=== PATIENT | female | born 1975 | race Two or more races ===

== ENCOUNTER 2024-09-26 19:46 | Emergency (ER) | payer MEDICAID, OTHER ==
[~2024-09-26] VITALS: Ht 154.9 cm; Wt 61.0 kg
[2024-09-26 20:49] LABS: Basophils # (auto) 0.1 10 ^3/uL (0-0.2); Basophils % (auto) 0.8 % (0.0-2.0); Eosinophils # (auto) 0.1 10 ^3/uL (0-0.8); Eosinophils % (auto) 1.4 % (0.0-7.0); Hematocrit 39.8 % (36.0-46.0); Hemoglobin 13.6 g/dL (12.2-16.2); Lymphocytes # (auto) 2.1 10 ^3/uL (0.4-5.4); Lymphocytes % (auto) 21.7 % (10.0-50.0); Mean Corpuscular Hemoglobin 32.8 pg (28.0-32.0); Mean Corpuscular Hgb Conc. 34.1 g/dL (32.0-36.0); Mean Corpuscular Volume 96.1 fL (80.0-100.0); Monocytes # (auto) 0.5 10 ^3/uL (0-1.3); Monocytes % (auto) 5.5 % (0.0-12.0); Neutrophils # (auto) 6.7 10 ^3/uL (1.6-8.6); Neutrophils % (auto) 70.6 % (37.0-80.0); Nucleated Red Blood Cells % 0.1 %; Platelet Count (auto) 219 10^3/uL (140-450); Red Blood Cells 4.14 10^6/uL (4.0-5.20); Red Cell Distribution Width 13.6 % (11.8-14.3); White Blood Cell 9.5 10^3/uL (4.4-10.8)
[2024-09-26 20:59] LABS: Chloride 101 mmol/L (98-107); Sodium 136 mmol/L (136-145)
[2024-09-26 21:00] LABS: Anion Gap 12 (5-15); Calcium 10.3 mg/dL (8.7-10.4); Carbon Dioxide 23 mmol/L (20-31)
[2024-09-26 21:05] LABS: BUN/Creatinine Ratio 15.1 (10.0-20.0); Blood Urea Nitrogen 11 mg/dL (9-23)
[2024-09-26 21:06] LABS: Glucose 107 mg/dL (74-106); Potassium 3.3 mmol/L (3.5-5.1)
--- NOTE | 2024-09-26 21:19 | DVH ---
EXAM: CT HEAD WITHOUT CONTRAST INDICATION: Left-sided head pain TECHNIQUE: CT of the head without intravenous contrast. Radiation Dose : 1. Head: CT Dose: CTDI volume is 57 mGy. Dose-length product is 1008 mGy*cm The dose indicators for CT are the volume Computed Tomography (CT) Dose Index (CTDIvol) and the Dose Length Product (DLP), and are measured in units of mGy and mGy-cm, respectively. These indicators are not patient dose, but values generated from the CT scanner acquisition factors. The report includes radiation exposure data for exposures received during this examination. COMPARISON: None FINDINGS: There is no evidence of acute intracranial hemorrhage, extra-axial collection, mass effect, midline s hift, herniation or hydrocephalus. The ventricles, sulci and cisterns are age appropriate. Small posterior fossa arachnoid cyst measurin g up to 3.3 cm The garces-white differentiation is intact. Patchy periventricular and subcortical white matter hypoattenuation is nonspecific but may be related to small vessel ischemic disease. The visualized paranasal sinuses and mastoid air cells are clear. Paranasal sinus disease. Moderate opacification of the left mastoid air cells. IMPRESSION: Moderate diffuse paranasal sinus disease and moderate left-sided mastoid effusion. Correlate for pos sible otomastoiditis.
[2024-09-26 21:31] LABS: Urine Bacteria None Seen /hpf (None Seen)
[2024-09-26 21:40] LABS: Urine Blood Negative /uL (Negative); Urine Clarity Turbid (Clear); Urine Color Orange (Yellow); Urine Mucus FEW (None Seen); Urine Protein, UAD 2+ (Negative); Urine Specific Gravity 1.031 (1.001-1.035); Urine Squamous Epithelial Cell MANY /hpf (<5); Urine Urobilinogen 4 mg/dL (Negative); Urine WBC 17 /hpf (0 - 5)
[2024-09-26] MEDS: KETOROLAC TROMETH 60MG/2ML VIAL IM ONE (21:48)
[2024-09-26 21:50] VITALS: BP 152/97; PULSE 114; RESP 20; TEMP 98.4; O2SAT 98
[2024-09-26] MEDS ORDERED: NITR-87 PO (21:59)
[2024-09-26] MEDS ORDERED: ACET500T58 PO (21:59)
--- NOTE | 2024-09-26 22:00 | ED.PDOC ---
History of Present Illness HPI Comments This patient is a 48-year-old French-speaking only female who arrives the ED today for evaluation of left-sided head pain with left-sided facial numbness and general left-sided discomfort for several days. Patient states the symptoms have abdomen flowed for the past week. Patient states she has got significant anxiety due to family and financial concerns. Patient denies any fever nausea or vomiting. Patient was mildly hypertensive and tachypneic at arrival. Chief Complaint: Anxiety Time Seen by MD: 20:03 Reviewed Notes: Nurses Notes Allergies: Coded Allergies: NO KNOWN ALLERGIES (Unverified , 09/26/24) Information Source: Patient Mode of Arrival: Ambulatory Severity: Moderate Timing: Days Duration: Since onset Prehospital treatment: None Past Medical History PAST MEDICAL HISTORY: Anxiety, Depression Surgical History: Denies all surgeries INFRASTRUCTURE DEVELOPER History: No Pertinent INFRASTRUCTURE DEVELOPER History Family History Family History: Reviewed,noncontributory to illness, No family hx of Cancer, No family hx of DM, No family hx of Heart zohreh, No family hx of HTN, No family hx ofKidney zohreh, No family hx of Liver zohreh, No family hx of Lung zohreh, No family hx of Stroke Social History Smoker: Non-Smoker Alcohol: Denies ETOH Use Drugs: Denies Drug Use Lives In: Home Constitutional: reports: fatigue, weakness; denies: chills, diaphoresis, fever, malaise, sweats, others EENTM: reports: others (Left-sided facial tingling and numbness); denies: blurred vision, double vision, ear bleeding, ear discharge, ear drainage, ear pain, ear ringing, eye pain, eye redness, hearing loss, mouth pain, mouth swelling, nasal discharge, nose bleeding, nose congestion, nose pain, photophobia, tearing, throat pain, throat swelling, voice changes Respiratory: denies: cough, hemoptysis, orthopnea, SOB at rest, shortness of breath, SOB with excertion, stridor, wheezing, others Cardiovascular: denies: chest pain, dizzy spells, diaphoresis, Dyspnea on exertion, edema, irregular heart beat, left arm pain, lightheadedness, palpitations, PND, syncope, others Gastrointestinal: denies: abdomen distended, abdominal pain, blood streaked bowels, constipated, diarrhea, dysphagia, difficulty swallowing, hematemesis, melena, nausea, poor appetite, poor fluid intake, rectal bleeding, rectal pain, vomiting, others Genitourinary: denies: abnormal vagina bleeding, burning, dyspareunia, dysuria, flank pain, frequency, hematuria, incontinence, pain, , vagina discharge, urgency, others Neurological: reports: numbness, tingling, tremors; denies: dizziness, fainti ng, headache, left sided numbness, left sided weakness, paresthesia, pre- existing deficit, right sided numbness, right sided weakness, seizure, speech problems, weakness, others Musculoskeletal: denies: back pain, gout, joint pain, joint swelling, muscle pain, muscle stiffness, neck pain, others Integumetry: denies: bruises, change in color, change in hair/nails, dryness, laceration, lesions, lumps, rash, wounds, others Allergic/Immunocompromised: denies: Difficulty Healing, Frequent Infections, Hives, Itching, others Hematologic/Lymphatic: reports: anemia; denies: blood clots, easy bleeding, easy bruising, swollen glands, others Endocrine: denies: excessive hunger, excessive sweating, excessive thirst, excessive urination, flushing, intolerance to cold, intolerance to heat, unexplained weight gain, unexplained weight loss, others Psychiatric: denies: anxiety, bipolar disorder, depression, hopeless, panic disorder, schizophrenia, sleepless, suicidal, others Physical Exam General Appearance: Moderate Distress (Patient was in moderate distress due mostly to anxiety. Patient was tremulous throughout exam.), Normal HEENT: Head (Unremarkable cranial evaluation. No signs of trauma. No skull depressions or deformities. No signs of trigeminal neuralgia.), Normal ENT Inspection, Pharynx Normal, TMs Normal Neck: Full Range of Motion, Non-Tender, Normal, Normal Inspection Respiratory: Chest Non-Tender, Lungs Clear, No Accessory Muscle Use, No Respiratory Distress, Normal Breath Sounds Cardiovascular: No Edema, No JVD, No Murmur, No Gallop, Normal Peripheral Pulses, Regular Rate/Rhythm Breast Exam: Deferred Gastrointestinal: No Organomegaly, Non Tender, No Pulsatile Mass, Normal Bowel Sounds, Soft Genitalia: Deferred Pelvic: Deferred Rectal: Deferred Extremities: No calf tenderness, Normal capillary refill, Normal inspection, Normal range of motion, Non-tender, No pedal edema Neurologic: Alert, No Motor Deficits, Normal Affect, Normal Mood, No Sensory Deficits Cerebellar Function: Normal Reflexes: Normal Skin: Dry, Normal Color, Warm Lymphatic: No Adenopathy Was a procedure done? Was a procedure done?: No Differential Dx Considerations may include: Subarachnoid hemorrhage, subdural hematoma, intracranial mass, sepsis, electrolyte abnormality, UTI X-Ray, Labs, Meds, VS Vital Signs Date Time Temp Pulse Resp B/P (MAP) Pulse Ox O2 Delivery O2 Flow Rate FiO2 09/26/24 20:01 24 99 Room Air* 0 21 09/26/24 20:01 97.9 97 24 147/91 (109) 99 Lab Test 09/26/24 21:03 09/26/24 20:33 Range/Units Urine Color Williams H Yellow Urine Clarity Turbid H Clear Urine pH 8.0 5.0-9.0 Urine Specific [place] 1.031 1.001-1.035 Urine Protein 2+ H Negative Urine Ketones 4+ H Negative Urine Blood Negative Negative /uL Urine Nitrite Negative Negative Urine Bilirubin 1+ H Negative Urine Urobilinogen 4 H Negative mg/dL Urine Leukocyte Esterase 2+ Negative /uL Urine RBC 6 0 - 4 /hpf Urine WBC 17 0 - 5 /hpf Urine Squamous Epithelial Cells Many <5 /hpf Urine Bacteria None seen None Seen /hpf Urine Mucus Few None Seen Urine Glucose Trace Normal mg/dL Urine Test Negative Negative White Blood Count 9.5 4.4-10.8 10^3/uL Red Blood Count 4.14 4.0-5.20 10^6/uL Hemoglobin 13.6 12.2-16.2 g/dL Hematocrit 39.8 36.0-46.0 % Mean Corpuscular Volume 96.1 80.0-100.0 fL Mean Corpuscular Hemoglobin 32.8 H 28.0-32.0 pg Mean Corpuscular Hemoglobin Concent 34.1 32.0-36.0 g/dL Red Cell Distribution Width 13.6 11.8-14.3 % Platelet Count 219 140-450 10^3/uL Mean Platelet Volume 9.7 6.9-10.8 fL Neutrophils (%) (Auto) 70.6 37.0-80.0 % Lymphocytes (%) (Auto) 21.7 10.0-50.0 % Monocytes (%) (Auto) 5.5 0.0-12.0 % Eosinophils (%) (Auto) 1.4 0.0-7.0 % Basophils (%) (Auto) 0.8 0.0-2.0 % Neutrophils # (Auto) 6.7 1.6-8.6 10 ^3/uL Lymphocytes # (Auto) 2.1 0.4-5.4 10 ^3/uL Monocytes # (Auto) 0.5 0-1.3 10 ^3/uL Eosinophils # (Auto) 0.1 0-0.8 10 ^3/uL Basophils # (Auto) 0.1 0-0.2 10 ^3/uL Nucleated Red Blood Cells 0.1 % Sodium Level 136 136-145 mmol/L Potassium Level 3.3 L 3.5-5.1 mmol/L Chloride Level 101 98-107 mmol/L Carbon Dioxide Level 23 20-31 mmol/L Anion Gap 12 5-15 Blood Urea Nitrogen 11 9-23 mg/dL Creatinine 0.73 0.550-1.02 mg/dL Glomerular Filtration Rate Calc 103 >90 mL/min BUN/Creatinine Ratio 15.1 10.0-20.0 Serum Glucose 107 H 74-106 mg/dL Calcium Level 10.3 8.7-10.4 mg/dL Current Medications Medications (Trade) Dose Ordered Sig/Margaret Route Start Time Stop Time Status Last Admin Ketorolac Tromethamine (Toradol Injection) 30 mg ONCE ONCE IM 09/26/24 20:30 09/26/24 20:31 DC 09/26/24 21:48 X-Ray, Labs, Meds, VS Comment All studies performed the ED were evaluated by me personally. Imaging studies were unremarkable for any acute intracranial process. No neoplasms or masses noted. Serum laboratories were unremarkable but urinalysis confirmed a UTI. Patient was given her 1st dose of antibiotics prior to discharge. Advised patient that she continues to have numbness concerns she may need to follow up with her primary care provider. Time of 1ST Reevaluation: 21:58 Reevaluation 1ST: Improved Consultation: PCP Patient Education/Counseling: Diagnosis, Treatment Family Education/Counseling: Diagnosis, Treatment Departure 1 Departure Time of Disposition: 21:58 Impression: Primary Impression: UTI (urinary tract infection) Disposition: HOME / SELF CARE / HOMELESS Condition: Stable Additional Instructions: Advised patient utilize antibiotics as directed until completion. Patient continues to have numbness concerns, she will need to follow up with the primary care provider for neurologic referral and evaluation. e-Prescriptions Acetaminophen (Acetaminophen) 500 Mg Tab 500 MG PO Q4HP PRN, #30 TAB Prov: ANNIE EDMONDSON PAC 09/26/24 Nitrofurantoin Monohydrate Mac (Macrobid) 100 Mg Cap 100 MG PO BID for 7 Days, #14 CAP Prov: ANNIE EDMONDSON PAC 09/26/24 Discharged With: Self, Friend Critical Care Note Critical Care Time?: No Stability Stability form required: No Heart Score Heart Score: Heart Score Response (Comments) Value History N/A 0 EKG N/A 0 Age N/A 0 Risk Factors N/A 0 Troponin N/A 0 Total 0 ANNIE EDMONDSON PAC Sep 26, 2024 22:00
[2024-09-26] MEDS: NITROFURANTOIN 100 mg CAP PO ONE (22:30)
== END 2024-09-26 22:37 | disposition home or self-care (01) ==
LOC: ER 19:46
DX: N39.0 Urinary tract infection, site not specified (principal); F41.9 Anxiety disorder, unspecified; F32.A Depression, unspecified
CPT/HCPCS: 36415; 70450; 80048; 81001; 81025; 85025; 96372; 99285; J1885

== ENCOUNTER 2024-10-16 08:12 | Inpatient (IN) | payer MEDICAID ==
[~2024-10-16] VITALS: Ht 154.9 cm; Wt 65.1 kg
[~2024-10-16 08:12] MED LIST: ACET500T58 PO; NITR-87 PO
--- NOTE | 2024-10-16 08:27 | ECG ---
[facility] Test Date: 2024-10-16 Test Time: 08:22:06 Pat Name: CRISTOPHER BECERRA Department: er Room: [facility] Gender: F Integration Consultant: amandeep : 1975 Requested By: ARMANI ZAMUDIO Order Number: [id number] Reading MD: Burt Zuniga Measurements Intervals [place] Rate: 102 P: 54 NM: 119 QRS: 3 QRSD: 85 T: 27 QT: 354 QTc: 462 Interpretive Statements Sinus tachycardia Low voltage, precordial leads Electronically Signed On 10-17-2024 17:16:16 PST by Burt Zuniga Please click the below link to view image of tracing.
[2024-10-16] MEDS: ASPirin 325 MG TAB PO ONE (08:30)
--- NOTE | 2024-10-16 08:30 | ED.PDOC ---
HPI Comments 48 year old female presents to the ED with chief complaint of chest pain. Patient reports that she has been experiencing stabbing, 9/10 left sided chest pain with associated dizziness, headache, and radiation to the left shoulder/arm for the past 3 days. Patient relays that she had a similar episode 1 month ago that resolved on its own. Patient states she took Tylenol for pain medication with no relief. Patient notes her pain is worse on exertion. Patient denies any SOB, cough, fever, chills, numbness, weakness, or syncope. Chief Complaint: Chest Pain Time Seen by MD: 08:27 Reviewed Notes: Nurses Notes, Medications, Allergies Allergies: Coded Allergies: NO KNOWN ALLERGIES (Unverified , 09/26/24) Home Meds Active Scripts Acetaminophen (Acetaminophen) 500 Mg Tab, 500 MG PO Q4HP PRN, #30 TAB Prov:ANNIE EDMONDSON PAC 09/26/24 Nitrofurantoin Monohydrate Mac (Macrobid) 100 Mg Cap, 100 MG PO BID for 7 Days, #14 CAP Prov:ANNIE EDMONDSON PAC 09/26/24 Information Source: Patient Mode of Arrival: Ambulatory Severity: Moderate Timing: Days Duration: Since onset Prehospital treatment: None Location: Chest (L) Radiation: Shoulder (L), Arm (L) Quality: Sharp Onset: At Rest, With Light Exertion Cardiac Risk Factors: None PE Risk Factors: None History of: Similar pain in past Past Medical History PAST MEDICAL HISTORY: Anxiety, Depression Surgical History: Denies all surgeries STRING LASTER History: No Pertinent STRING LASTER History Family History Family History: Reviewed,noncontributory to illness, No family hx of Cancer, No family hx of DM, No family hx of Heart zohreh, No family hx of HTN, No family hx ofKidney zohreh, No family hx of Liver zohreh, No family hx of Lung zohreh, No family hx of Stroke Social History Smoker: Non-Smoker Alcohol: Denies ETOH Use Drugs: Denies Drug Use Lives In: Home Constitutional: denies: chills, diaphoresis, fatigue, fever, malaise, sweats, weakness, others EENTM: denies: blurred vision, double vision, ear bleeding, ear discharge, ear drainage, ear pain, ear ringing, eye pain, eye redness, hearing loss, mouth pain, mouth swelling, nasal discharge, nose bleeding, nose congestion, nose pain, photophobia, tearing, throat pain, throat swelling, voice changes, others Respiratory: denies: cough, hemoptysis, orthopnea, SOB at rest, shortness of breath, SOB with excertion, stridor, wheezing, others Cardiovascular: reports: chest pain, left arm pain; denies: dizzy spells, diaphoresis, Dyspnea on exertion, edema, irregular heart beat, lightheadedness, palpitations, PND, syncope, others Gastrointestinal: denies: abdomen distended, abdominal pain, blood streaked bowels, constipated, diarrhea, dysphagia, difficulty swallowing, hematemesis, melena, nausea, poor appetite, poor fluid intake, rectal bleeding, rectal pain, vomiting, others Genitourinary: denies: abnormal vagina bleeding, burning, dyspareunia, dysuria, flank pain, frequency, hematuria, incontinence, pain, , vagina discharge, urgency, others Neurological: reports: dizziness, headache; denies: fainting, left sided numbness, left sided weakness, numbness, paresthesia, pre-existing deficit, right sided numbness, right sided weakness, seizure, speech problems, tingling, tremors, weakness, others Musculoskeletal: denies: back pain, gout, joint pain, joint swelling, muscle pain, muscle stiffness, neck pain, others Integumetry: denies: bruises, change in color, change in hair/nails, dryness, laceration, lesions, lumps, rash, wounds, others Allergic/Immunocompromised: denies: Difficulty Healing, Frequent Infections, Hives, Itching, others Hematologic/Lymphatic: denies: anemia, blood clots, easy bleeding, easy bruisin g, swollen glands, others Endocrine: denies: excessive hunger, excessive sweating, excessive thirst, excessive urination, flushing, intolerance to cold, intolerance to heat, unexplained weight gain, unexplained weight loss, others Psychiatric: denies: anxiety, bipolar disorder, depression, hopeless, panic disorder, schizophrenia, sleepless, suicidal, others All Other Systems: Reviewed and Negative Physical Exam General Appearance: Moderate Distress, Normal HEENT: Normal ENT Inspection, PERRL/EOMI Neck: Full Range of Motion, Non-Tender, Normal, Normal Inspection Respiratory: Chest Non-Tender, Lungs Clear, No Accessory Muscle Use, No Respiratory Distress, Normal Breath Sounds Cardiovascular: No Edema, No JVD, No Murmur, No Gallop, Normal Peripheral Pulses, Regular Rate/Rhythm Breast Exam: Deferred Gastrointestinal: No Organomegaly, Non Tender, No Pulsatile Mass, Normal Bowel Sounds, Soft Genitalia: Deferred Pelvic: Deferred Rectal: Deferred Extremities: No calf tenderness, Normal capillary refill, Normal inspection, Normal range of motion, Non-tender, No pedal edema Musculoskeletal : Apperance: Normal Neurologic: Alert, yield analyst II-XII nml as Tested, No Motor Deficits, Normal Affect, Normal Mood, No Sensory Deficits Cerebellar Function: Normal Reflexes: Normal Skin: Dry, Normal Color, Warm Peripheral Pulses: 3+ Radial (R), 3+ Radial (L) Lymphatic: No Adenopathy Was a procedure done? Was a procedure done?: No CP Differential Dx Differential Diagnosis: A-fib, A-Flutter, Angina, Anxiety / Panic Attack, Atrial Dysrhythmia, Electrolyte Disorder X-Ray, Labs, Meds, VS Vital Signs Date Time Temp Pulse Resp B/P (MAP) Pulse Ox O2 Delivery O2 Flow Rate FiO2 10/16/24 09:42 105 18 97 Room Air 10/16/24 09:42 99.0 105 18 139/96 (110) 97 99.0 10/16/24 09:13 102 10/16/24 08:22 102 10/16/24 08:21 98.0 99 18 135/88 (104) 97 Lab Test 10/16/24 09:47 10/16/24 08:24 10/16/24 08:19 Range/Units Troponin I High Sensitivity < 3 L < 3 L </=34 ng/L White Blood Count 6.8 4.4-10.8 10^3/uL Red Blood Count 4.11 4.0-5.20 10^6/uL Hemoglobin 13.5 12.2-16.2 g/dL Hematocrit 40.1 36.0-46.0 % Mean Corpuscular Volume 97.6 80.0-100.0 fL Mean Corpuscular Hemoglobin 32.7 H 28.0-32.0 pg Mean Corpuscular Hemoglobin Concent 33.5 32.0-36.0 g/dL Red Cell Distribution Width 14.8 H 11.8-14.3 % Platelet Count 317 140-450 10^3/uL Mean Platelet Volume 9.2 6.9-10.8 fL Neutrophils (%) (Auto) 68.4 37.0-80.0 % Lymphocytes (%) (Auto) 25.0 10.0-50.0 % Monocytes (%) (Auto) 5.3 0.0-12.0 % Eosinophils (%) (Auto) 0.5 0.0-7.0 % Basophils (%) (Auto) 0.8 0.0-2.0 % Neutrophils # (Auto) 4.7 1.6-8.6 10 ^3/uL Lymphocytes # (Auto) 1.7 0.4-5.4 10 ^3/uL Monocytes # (Auto) 0.4 0-1.3 10 ^3/uL Eosinophils # (Auto) 0 0-0.8 10 ^3/uL Basophils # (Auto) 0.1 0-0.2 10 ^3/uL Nucleated Red Blood Cells 0.1 % Sodium Level 136 136-145 mmol/L Potassium Level 3.8 3.5-5.1 mmol/L Chloride Level 103 98-107 mmol/L Carbon Dioxide Level 23 20-31 mmol/L Anion Gap 10 5-15 Blood Urea Nitrogen 10 9-23 mg/dL Creatinine 0.67 0.550-1.02 mg/dL Glomerular Filtration Rate Calc 109 >90 mL/min BUN/Creatinine Ratio 14.9 10.0-20.0 Serum Glucose 149 H 74-106 mg/dL Calcium Level 9.9 8.7-10.4 mg/dL Urine Color Brown H Yellow Urine Clarity Ex.turbid Clear Urine pH 6.0 5.0-9.0 Urine Specific [place] 1.028 1.001-1.035 Urine Protein 2+ H Negative Urine Ketones 1+ H Negative Urine Blood 3+ H Negative /uL Urine Nitrite Negative Negative Urine Bilirubin Negative Negative Urine Urobilinogen Normal Negative mg/dL Urine Leukocyte Esterase 1+ Negative /uL Urine RBC 6138 0 - 4 /hpf Urine Microscopic WBC 122 H 0-5 /HPF Urine Squamous Epithelial Cells Few <5 /hpf Urine Bacteria None seen None Seen /hpf Urine Mucus Few None Seen Urine Glucose Normal Normal mg/dL Current Medications Medications (Trade) Dose Ordered Sig/Margaret Route Start Time Stop Time Status Last Admin Aspirin 325 mg ONCE ONCE PO 10/16/24 08:30 10/16/24 08:31 DC 10/16/24 08:30 Patient alert. Complaining of chest pain. Was given aspirin. Cardiac marker within normal limits. UA shows blood. Blood sugar elevated. Continues to have chest discomfort. Possible sepsis from urine. Was given Bactrim. EKG reviewed does not show any acute changes. Explained to the patient. Continue cardiac monitoring. Time of 1ST Reevaluation: 09:27 Reevaluation 1ST: Improved Patient Education/Counseling: Diagnosis, Treatment Family Education/Counseling: No Family Present Departure 1 Departure Time of Disposition: 11:31 Impression: Primary Impression: Chest pain of unknown etiology Additional Impression: Sepsis due to urinary tract infection Disposition: ADMITTED INPATIENT Admit to: Med Surg Condition: Guarded Critical Care Note Critical Care Time?: Yes (45 min-critical care time only) Stability Stability form required: No Heart Score Heart Score: Heart Score Response (Comments) Value History Moderate Suspicious 1 EKG Normal 0 Age 45-64 1 Risk Factors 1 or 2 risk factors 1 Troponin Normal limit 0 Total 3 I personally scribed for ARMANI ZAMUDIO MD ([email or web address]) on 10/16/24 at 08:30. Electronically submitted by Fran Espinal ([email or web address]). ARMANI ZAMUDIO MD Oct 16, 2024 08:30
[2024-10-16 08:35] LABS: Basophils # (auto) 0.1 10 ^3/uL (0-0.2); Basophils % (auto) 0.8 % (0.0-2.0); Eosinophils # (auto) 0 10 ^3/uL (0-0.8); Eosinophils % (auto) 0.5 % (0.0-7.0); Hematocrit 40.1 % (36.0-46.0); Hemoglobin 13.5 g/dL (12.2-16.2); Lymphocytes # (auto) 1.7 10 ^3/uL (0.4-5.4); Mean Corpuscular Hemoglobin 32.7 pg (28.0-32.0); Mean Corpuscular Hgb Conc. 33.5 g/dL (32.0-36.0); Mean Corpuscular Volume 97.6 fL (80.0-100.0); Monocytes # (auto) 0.4 10 ^3/uL (0-1.3); Monocytes % (auto) 5.3 % (0.0-12.0); Neutrophils # (auto) 4.7 10 ^3/uL (1.6-8.6); Neutrophils % (auto) 68.4 % (37.0-80.0); Nucleated Red Blood Cells % 0.1 %; Platelet Count (auto) 317 10^3/uL (140-450); Red Blood Cells 4.11 10^6/uL (4.0-5.20); Red Cell Distribution Width 14.8 % (11.8-14.3); White Blood Cell 6.8 10^3/uL (4.4-10.8)
[2024-10-16 08:45] LABS: Chloride 103 mmol/L (98-107); Potassium 3.8 mmol/L (3.5-5.1)
[2024-10-16 08:46] LABS: Anion Gap 10 (5-15); Carbon Dioxide 23 mmol/L (20-31); Sodium 136 mmol/L (136-145)
[2024-10-16 08:46] LABS: Urine Bacteria None Seen /hpf (None Seen)
[2024-10-16 08:47] LABS: Calcium 9.9 mg/dL (8.7-10.4)
[2024-10-16 08:52] LABS: BUN/Creatinine Ratio 14.9 (10.0-20.0); Blood Urea Nitrogen 10 mg/dL (9-23)
[2024-10-16 09:01] LABS: Urine Blood 3+ /uL (Negative); Urine Clarity Ex.Turbid (Clear); Urine Color Brown (Yellow); Urine Mucus FEW (None Seen); Urine Protein, UAD 2+ (Negative); Urine Specific Gravity 1.028 (1.001-1.035); Urine Squamous Epithelial Cell FEW /hpf (<5); Urine Urobilinogen Normal (Negative); Urine WBC 122 /HPF (0-5)
[2024-10-16 09:33] LABS: Glucose 149 mg/dL (74-106)
[2024-10-16] MEDS: SULFAMETH-TRIMETH 80/16MG-ML 10 ML in D5W 5% 250 ML IV ONE (11:45)
[2024-10-16] MEDS ORDERED: NITROGLYCERIN 0.4 MG SL TAB SL PRN (13:45)
[2024-10-16] MEDS ORDERED: DOCUSATE SOD 100 MG CAP PO PRN (13:45)
--- NOTE | 2024-10-16 13:46 | DVHHP2 ---
History of Present Illness Reason for Visit: CHEST PAIN History of Present Illness 48-year-old female past medical history anxiety depression in Nauruan speaking surgical history denies chief complaint patient comes in with left-sided chest pain that radiates down her left arm in his of dizziness and headache has been going on for three days. Patient denies any shortness with the breath with the pain no cough no fever. Nothing makes it worse nothing makes it better. Patient denies any history of cardiac disease. Patient denies any abdominal pain no flank pain. No blood in her urine no difficulty urination. When evaluating patient's labs and imaging Bactrim was given aspirin CBC was unre markable CMP unremarkable troponin was negative x2 urine showed ketones and little bit of blood and bacteria. With these findings we will admit patient do further workup for chest pain and provide IV antibiotics for UTI Past Medical History Anxiety depression Past Surgical History Denies surgical history Family History Reviewed, non-contributory to the management of this case. Past Social History The patient lives at home, denies smoking, alcohol or illicit drugs abuse. Review of Systems Constitutional: No: Fever, Chills, Sweats, Weakness, Malaise, Other Eyes: No: Pain, Vision change, Conjunctivae inflammation, Eyelid inflammation, Other, Redness ENT: No: Ear pain, Ear discharge, Nose pain, Nose discharge, Nose congestion, Mouth pain, Mouth swelling, Throat pain, Throat swelling, Other Respiratory: No: Cough, Dry, Shortness of breath, SOB with excertion, Wheezing, Hemoptysis, Pleuritic Pain, Sputum, Wheezing, Other Cardiovascular: Chest Pain; No: Palpitations, Orthopnea, Paroxysmal Noc. Dyspnea, Edema, Lt Headedness, Other Gastrointestinal: No: Nausea, Vomiting, Abdominal Pain, Diarrhea, Constipation, Melena, Hematochezia, Other Genitourinary: No Dysuria, No Frequency, No Incontinence, No Hematuria, No Retention, No Other Musculoskeletal: No: other, neck pain, shoulder pain, arm pain, back pain, hand pain, leg pain, foot pain Skin: No: Rash, Lesions, Jaundice, Bruising, Other Neurological: No: Weakness, Numbness, Incoordination, Change in speech, Con fusion, Seizures, Other Allergies: Coded Allergies: NO KNOWN ALLERGIES (Unverified , 09/26/24) Exam Vital Signs Vital Signs Date Time Temp Pulse Resp B/P (MAP) Pulse Ox O2 Delivery O2 Flow Rate FiO2 10/16/24 09:42 105 18 97 Room Air 10/16/24 09:42 99.0 139/96 (110) 99.0 General Appearance: Alert, Oriented X3, Cooperative, No acute distress HEENT: Atraumatic, PERRLA, EOMI, Mucous membr. moist/pink Respiratory: Clear to auscultation, Normal air movement Cardiovascular: Regular rate, Normal S1, Normal S2, No murmurs Abdominal: Normal bowel sounds, Soft, No tenderness, No hepatospenomegaly, No masses Extremities: No clubbing, No cyanosis, No edema, Normal pulses, No tenderness/swelling Skin: No rashes, No breakdown, No significant lesion Neuro: Normal gait, Normal speech, Strength at 5/5 X4 ext, Normal tone, Sensation intact, Cranial nerves 3-12 NL Psych/Mental Status: Mental status NL, Mood NL Labs/Xrays I REVIEWED LABS, IMAGING CT SCAN ABDOMEN PELVIS, EKG AND ALL DIAGNOSTIC STUDIES ON THIS PATIENT FROM ED RECORDS AND THE MEDICAL CHART Labs Test 10/16/24 09:47 10/16/24 08:24 10/16/24 08:19 Range/Units Troponin I High Sensitivity < 3 L </=34 ng/L White Blood Count 6.8 4.4-10.8 10^3/uL Red Blood Count 4.11 4.0-5.20 10^6/uL Hemoglobin 13.5 12.2-16.2 g/dL Hematocrit 40.1 36.0-46.0 % Mean Corpuscular Volume 97.6 80.0-100.0 fL Mean Corpuscular Hemoglobin 32.7 H 28.0-32.0 pg Mean Corpuscular Hemoglobin Concent 33.5 32.0-36.0 g/dL Red Cell Distribution Width 14.8 H 11.8-14.3 % Platelet Count 317 140-450 10^3/uL Mean Platelet Volume 9.2 6.9-10.8 fL Neutrophils (%) (Auto) 68.4 37.0-80.0 % Lymphocytes (%) (Auto) 25.0 10.0-50.0 % Monocytes (%) (Auto) 5.3 0.0-12.0 % Eosinophils (%) (Auto) 0.5 0.0-7.0 % Basophils (%) (Auto) 0.8 0.0-2.0 % Neutrophils # (Auto) 4.7 1.6-8.6 10 ^3/uL Lymphocytes # (Auto) 1.7 0.4-5.4 10 ^3/uL Monocytes # (Auto) 0.4 0-1.3 10 ^3/uL Eosinophils # (Auto) 0 0-0.8 10 ^3/uL Basophils # (Auto) 0.1 0-0.2 10 ^3/uL Nucleated Red Blood Cells 0.1 % Sodium Level 136 136-145 mmol/L Potassium Level 3.8 3.5-5.1 mmol/L Chloride Level 103 98-107 mmol/L Carbon Dioxide Level 23 20-31 mmol/L Anion Gap 10 5-15 Blood Urea Nitrogen 10 9-23 mg/dL Creatinine 0.67 0.550-1.02 mg/dL Glomerular Filtration Rate Calc 109 >90 mL/min BUN/Creatinine Ratio 14.9 10.0-20.0 Serum Glucose 149 H 74-106 mg/dL Calcium Level 9.9 8.7-10.4 mg/dL Urine Color Brown H Yellow Urine Clarity Ex.turbid Clear Urine pH 6.0 5.0-9.0 Urine Specific [place] 1.028 1.001-1.035 Urine Protein 2+ H Negative Urine Ketones 1+ H Negative Urine Blood 3+ H Negative /uL Urine Nitrite Negative Negative Urine Bilirubin Negative Negative Urine Urobilinogen Normal Negative mg/dL Urine Leukocyte Esterase 1+ Negative /uL Urine RBC 6138 0 - 4 /hpf Urine Microscopic WBC 122 H 0-5 /HPF Urine Squamous Epithelial Cells Few <5 /hpf Urine Bacteria None seen None Seen /hpf Urine Mucus Few None Seen Urine Glucose Normal Normal mg/dL Assessment/Plan Assessment/Plan acute chest pain eval for acs ordered cxr ordered ekg no stemi and trop negative consider cards consult if echo is abnormal ordered chung ordered atorvastatin ordered morphine as needed for pain, ordered lipid panel acute cystitis ordered ceftriaxone ordered urine culture chronic problems anxiety depression fen/ppx diet ivf hl no gi ppx since hx of gerds or gi bleed no dvt ppx since pt is ambulatory plan admit to tele for chest pain Plan discussed with: Patient My Orders Orders - ZUHAIR MORTON DNP Procedure Category Date Status Time Admit ADMIT 10/16/24 Verified 13:40 Allergies ROB 10/16/24 Verified 13:40 Code Status CODE 10/16/24 Verified 13:40 Ondansetron Hcl [facility] 10/16/24 Verified (Zofran) 13:45 Docusate Sodium [facility] 10/16/24 Verified Capsule (Colace 13:45 Complete Blood Count LAB 10/17/24 Verified 04:00 Comprehensive LAB 10/17/24 Verified Metabolic Panel 04:00 Cardiac DIET 10/16/24 Verified Diet-2gna,Lofat,Lochol Dinner Condition: Stable [facility] 10/16/24 Verified 13:40 BRP [facility] 10/16/24 Verified 13:40 Morphine Sulfate [facility] 10/16/24 Verified Injection 13:45 Sequential [facility] 10/16/24 Verified Compression Device Nitroglycerin [facility] 10/16/24 Verified Sublingual (Ntrostat 13:45 Stat Ekg For Chest [facility] 10/16/24 Verified Pain 13:40 Notify Md Of Changes [facility] 10/16/24 Verified From Base 13:40 Environmental Science Program Director For [facility] 10/16/24 Verified 24 Hours 13:40 Emergency Dysrhythmia [facility] 10/16/24 Verified Protocol 13:40 Rhythm Strips Once [facility] 10/16/24 Verified Every Shift 13:40 Oxygen By Nasal RT 10/16/24 Verified Cannula 13:40 Aspirin Tablet [facility] 10/17/24 Verified 10:00 Ceftriaxone Ivpb [facility] 10/17/24 Verified Rocephin 09:00 Ceftriaxone Ivpb [facility] 10/16/24 Verified Rocephin 13:45 Date of Service: Oct 16, 2024 Billing Provider: ZUHAIR MORTON DNP Common Visit Codes: [id number] INP/OBS CARE (HIGH) ZUHAIR MORTON [facility] Oct 16, 2024 13:46
--- NOTE | 2024-10-16 14:18 | DVH ---
CHEST RADIOGRAPH Indication: eval for chest pain Technique: Single frontal view of the chest was obtained Comparison: None FINDINGS: Lines and Tubes: None Lungs: No focal consolidation. Pleura: No effusion. No pneumothorax. Cardiomediastinal contours: Unremarkable Bones: No acute osseous abnormality. IMPRESSION: No acute cardiopulmonary disease.
[2024-10-16 15:00] VITALS: PULSE 94; RESP 17; O2SAT 100
[2024-10-16] MEDS: ONDANSETRON HCL 4 MG/2 ML VIAL IV PRN (15:18)
[2024-10-16] MEDS: cefTRIAXone 1GM/50ML D5W 50 ML IV ONE (15:18)
[2024-10-16] MEDS: MORPHINE SULFATE INJ 2 MG/ml SYRG IV PRN (15:19)
[2024-10-16 18:50] VITALS: BP 137/93; PULSE 72; RESP 18; TEMP 98.6; O2SAT 98
[2024-10-16 20:00] VITALS: PULSE 80; PULSE 82; PULSE 98; RESP 18; O2SAT 80
[2024-10-16] MEDS ORDERED: IBUP-1455 PO (20:06)
[2024-10-16 21:00] VITALS: BP 138/95; PULSE 80; RESP 18; TEMP 98.6; O2SAT 98
[2024-10-16] MEDS: ATORVASTATIN 20 MG TAB PO SCH (21:14)
[2024-10-17 01:00] VITALS: BP 137/80; PULSE 73; RESP 18; TEMP 98.1; O2SAT 99
[2024-10-17 05:00] VITALS: BP 136/83; PULSE 68; RESP 18; TEMP 98; O2SAT 98
[2024-10-17 06:14] LABS: Basophils # (auto) 0.1 10 ^3/uL (0-0.2); Basophils % (auto) 0.8 % (0.0-2.0); Eosinophils # (auto) 0.4 10 ^3/uL (0-0.8); Eosinophils % (auto) 6.1 % (0.0-7.0); Hematocrit 36.9 % (36.0-46.0); Hemoglobin 12.3 g/dL (12.2-16.2); Lymphocytes # (auto) 2.5 10 ^3/uL (0.4-5.4); Lymphocytes % (auto) 35.7 % (10.0-50.0); Mean Corpuscular Hemoglobin 32.6 pg (28.0-32.0); Mean Corpuscular Hgb Conc. 33.4 g/dL (32.0-36.0); Mean Corpuscular Volume 97.5 fL (80.0-100.0); Monocytes # (auto) 0.5 10 ^3/uL (0-1.3); Monocytes % (auto) 6.7 % (0.0-12.0); Neutrophils # (auto) 3.5 10 ^3/uL (1.6-8.6); Neutrophils % (auto) 50.7 % (37.0-80.0); Nucleated Red Blood Cells % 0.2 %; Platelet Count (auto) 251 10^3/uL (140-450); Red Blood Cells 3.79 10^6/uL (4.0-5.20); Red Cell Distribution Width 14.4 % (11.8-14.3); White Blood Cell 6.9 10^3/uL (4.4-10.8)
[2024-10-17 06:45] LABS: Anion Gap 9 (5-15); BUN/Creatinine Ratio 15.5 (10.0-20.0); Blood Urea Nitrogen 11 mg/dL (9-23); Calcium 9.7 mg/dL (8.7-10.4); Carbon Dioxide 24 mmol/L (20-31); Chloride 103 mmol/L (98-107); Glucose 90 mg/dL (74-106); Potassium 3.8 mmol/L (3.5-5.1)
[2024-10-17 06:46] LABS: Alanine Aminotransferase 58 U/L (7-40); Alkaline Phosphatase 117 U/L (46-116); Sodium 136 mmol/L (136-145)
[2024-10-17 06:47] LABS: Albumin 3.8 g/dL (3.2-4.8); Total Protein 7.5 g/dL (5.7-8.2)
[2024-10-17 06:51] LABS: Aspartate Aminotransferase 92 U/L (13-40); Bilirubin, Total 2.3 mg/dL (0.2-1.0)
[2024-10-17 08:00] VITALS: PULSE 68; PULSE 72; RESP 18
[2024-10-17 09:00] VITALS: BP 139/88; PULSE 66; RESP 14; TEMP 98.5; O2SAT 94
[2024-10-17] MEDS: ASPirin 81 mg TAB PO SCH (09:36)
[2024-10-17] MEDS: cefTRIAXone 1GM/50ML D5W 50 ML IV SCH (09:36)
[2024-10-17 09:58] LABS: Triglycerides 83 mg/dL (< 150)
[2024-10-17 09:59] LABS: LDL Cholesterol 123 mg/dL (< 100)
[2024-10-17 10:00] LABS: Cholesterol 175 mg/dL (< 200); HDL Cholesterol 50 mg/dL (40-59)
[2024-10-17] MEDS ORDERED: ASPirin 81 mg TAB PO SCH (10:00)
--- NOTE | 2024-10-17 11:24 | DVHSR ---
APPROVED REPORT EXAM: Two-dimensional and M-mode echocardiogram with Doppler and color Doppler. Blood Pressure: 136/83 mmHg INDICATION eval for cardiac function and ef RISK FACTORS Height: 5'1, Weight: 143 DIMENSIONS LVDd4.3 (3.8-5.7cm)LA (2D)3.3 (1.9-4.0cm)Aortic Root3.1 (2.0-3.7cm) LVDs2.9 (2.5-4.0cm)LA (MM) (1.9-4.0cm)Aortic Cusp Exc1.4 (1.5-2.0cm) EF (%) 60.0 (55-70%)Rt. Atrium3.1 (1.9-4.0cm)Asc. Aorta3.6 cm IVSd0.9 (0.7-1.1cm)RV (D)4.0 (1.8-2.4cm) PWd1.0 (0.7-1.1cm) Mitral Valve MitralMitral Stenosis E wave0.87m/sMV Mean GR.mmHg A wave0.71m/sMV Peak GR.mmHg E/A ratio1.22D MVAcm2 DECEL [id number] 1/2 Timems Aortic Valve Aortic ValveAortic Stenosis V11.01m/Dinorah Mean GR.3mmHg V21.19m/Dinorah Peak GR.6mmHg LVOT Diameter1.6 (1.8-2.4cm)Doppler AVA1.71cm2 Pulmonic Valve V20.73m/s Tricuspid Valve TR Velocity1.93m/s [id number] LEFT VENTRICLE The left ventricle is of normal size. Wall thickness is normal. Ejection fraction is normal and is estimated at 60%. There is no regional wall motion abnormalities. Diastolic function is normal. E to E prime ratio is in normal range. RIGHT VENTRICLE The right ventricle is of normal size. Systolic function is normal. There is prominent moderator ba nd visualized. ATRIA Both atria are of normal size. Interatrial septum appears to be normal. MITRAL VALVE Normal structure and function. No significant mitral regurgitation. PULMONIC VALVE Likely normal. TRICUSPID VALVE Normal structure and function. There is trace tricuspid regurgitation. PA systolic pressure is anitra mated at 20-25 mm Hg. AORTIC VALVE Normal structure and function. GREAT VESSELS The aortic root is of normal size. Proximal ascending aorta is of normal size. PERICARDIAL EFFUSION No significant pericardial effusion. IVC is of normal size and collapses normally with inspiration. Conclusion Normal left ventricular size and systolic function. Ejection fraction is estimated at 60%. Normal right ventricular size and systolic function. No hemodynamically significant valvular disease. No evidence of pulmonary hypertension. No significant pericardial effusion.
[2024-10-17 13:00] VITALS: BP 139/90; PULSE 63; RESP 20; TEMP 98; O2SAT 95
--- NOTE | 2024-10-17 13:35 | ECG ---
[facility] Test Date: 2024-10-16 Test Time: 09:13:39 Pat Name: CRISTOPHER BECERRA Department: er Room: [facility]6T A Gender: F Mast Maker: amandeep : [id number] Requested By: ARMANI ZAMUDIO Order Number: [id number] Reading MD: Burt Zuniga Measurements Intervals [place] Rate: 102 P: 56 WI: 129 QRS: -54 QRSD: 83 T: 15 QT: 346 QTc: 451 Interpretive Statements Sinus tachycardia LAD, consider left anterior fascicular block Low voltage, precordial leads Minimal ST elevation, lateral leads Electronically Signed On 10-17-2024 17:16:35 PST by Burt Zuniga Please click the below link to view image of tracing.
[2024-10-17] MEDS: MAGNESIUM SULFATE 1GM/100ML 100 ML IV ONE (13:54)
--- NOTE | 2024-10-17 13:54 | DVH ---
EXAM: CT SINUS WITHOUT CONTRAST HISTORY: Sinusitis COMPARISON: CT HEAD WITHOUT CONTRAST on DOS: 09/26/24 TECHNIQUE: Axial images were obtained and reformatted in coronal and sagittal planes. All CT scans at this medical facility are performed using dose modulation techniques as appropriate t o a performed exam including the following: Automated exposure control was utilized; adjustment of th e MA and/or KV according to patient size; and use of iterative reconstruction technique. CT Dose: CTDI volume is 66.5 mGy. Dose-length product is 838.76 mGy*cm FINDINGS: PARANASAL SINUSES: Trace fluid mixed with air noted in the dependent part of the left sphenoid sinus. Mild left maxillary sinus mucosal thickening OSTIOMEATAL COMPLEXES: Unremarkable. Specifically, the infundibulum are patent. NASAL CAVITY: The osseous nasal septum is midline. The nasal turbinates are unremarkable. MASTOIDS: Moderate mastoid effusion. TEMPOROMANDIBULAR JOINTS: Unremarkable. ORBITS: Unremarkable. ORAL CAVITY: Grossly unremarkable. TONSILS AND ADENOIDS: Unremarkable. BONES/SOFT TISSUES: Unremarkable. OTHER: None. IMPRESSION: 1. Significant interval improvement of paranasal sinus disease minimal disease noted in the left sphe noid and maxillary sinuses. 2. Stable left mastoid effusion.
[2024-10-17] MEDS: PROCHLORPERAZINE EDISYLATE 5 MG/ML 2ML VIAL IV ONE (13:55)
[2024-10-17] MEDS ORDERED: IBUP1TAB5 PO (15:18)
[2024-10-17] MEDS ORDERED: AUG875T PO (15:18)
[2024-10-17] MEDS ORDERED: ACET650T12 PO (15:18)
--- NOTE | 2024-10-17 15:31 | DVHDSRES ---
Discharge Summary Date of Admission Resident Creating Document: SHORTY MARQUEZ RESIDENT Oct 16, 2024 at 13:40 Date of Discharge: Oct 17, 2024 Admitting Diagnosis Acute chest pain and frontal headache Wounds: No wounds present at this time. Labs/Diagnostic Data: Laboratory Results Test 10/17/24 04:48 10/16/24 09:47 10/16/24 08:19 White Blood Count 6.9 10^3/uL (4.4-10.8) Red Blood Count 3.79 10^6/uL (4.0-5.20) Hemoglobin 12.3 g/dL (12.2-16.2) Hematocrit 36.9 % (36.0-46.0) Mean Corpuscular Volume 97.5 fL (80.0-100.0) Mean Corpuscular Hemoglobin 32.6 pg (28.0-32.0) Mean Corpuscular Hemoglobin Concent 33.4 g/dL (32.0-36.0) Red Cell Distribution Width 14.4 % (11.8-14.3) Platelet Count 251 10^3/uL (140-450) Mean Platelet Volume 9.7 fL (6.9-10.8) Neutrophils (%) (Auto) 50.7 % (37.0-80.0) Lymphocytes (%) (Auto) 35.7 % (10.0-50.0) Monocytes (%) (Auto) 6.7 % (0.0-12.0) Eosinophils (%) (Auto) 6.1 % (0.0-7.0) Basophils (%) (Auto) 0.8 % (0.0-2.0) Neutrophils # (Auto) 3.5 10 ^3/uL (1.6-8.6) Lymphocytes # (Auto) 2.5 10 ^3/uL (0.4-5.4) Monocytes # (Auto) 0.5 10 ^3/uL (0-1.3) Eosinophils # (Auto) 0.4 10 ^3/uL (0-0.8) Basophils # (Auto) 0.1 10 ^3/uL (0-0.2) Nucleated Red Blood Cells 0.2 % Sodium Level 136 mmol/L (136-145) Potassium Level 3.8 mmol/L (3.5-5.1) Chloride Level 103 mmol/L (98-107) Carbon Dioxide Level 24 mmol/L (20-31) Anion Gap 9 (5-15) Blood Urea Nitrogen 11 mg/dL (9-23) Creatinine 0.71 mg/dL (0.550-1.02) Glomerular Filtration Rate Calc 106 mL/min (>90) BUN/Creatinine Ratio 15.5 (10.0-20.0) Serum Glucose 90 mg/dL (74-106) Hemoglobin A1c 5.0 % A1C (<5.7) Calcium Level 9.7 mg/dL (8.7-10.4) Total Bilirubin 2.3 mg/dL (0.2-1.0) Aspartate Amino Transferase (AST) 92 U/L (13-40) Alanine Aminotransferase (ALT) 58 U/L (7-40) Alkaline Phosphatase 117 U/L (46-116) B-Type Natriuretic Peptide 60.86 pg/mL (0-100) Total Protein 7.5 g/dL (5.7-8.2) Albumin 3.8 g/dL (3.2-4.8) Triglycerides Level 83 mg/dL (< 150) Cholesterol Level 175 mg/dL (< 200) LDL Cholesterol 123 mg/dL (< 100) HDL Cholesterol 50 mg/dL (40-59) Thyroid Stimulating Hormone (TSH) 2.26 uIU/mL (0.55-4.78) Troponin I High Sensitivity < 3 ng/L (</=34) Urine Color Brown (Yellow) Urine Clarity Ex.turbid (Clear) Urine pH 6.0 (5.0-9.0) Urine Specific [employer] 1.028 (1.001-1.035) Urine Protein 2+ (Negative) Urine Ketones 1+ (Negative) Urine Blood 3+ /uL (Negative) Urine Nitrite Negative (Negative) Urine Bilirubin Negative (Negative) Urine Urobilinogen Normal mg/dL (Negative) Urine Leukocyte Esterase 1+ /uL (Negative) Urine RBC 6138 /hpf (0 - 4) Urine Microscopic WBC 122 /HPF (0-5) Urine Squamous Epithelial Cells Few /hpf (<5) Urine Bacteria None seen /hpf (None Seen) Urine Mucus Few (None Seen) Urine Glucose Normal mg/dL (Normal) Other Laboratory Tests 10/17/24 04:48 Brief Hx & Hospital Course: Hospitalization course: This is a 48-year-old female with past medical history of anxiety disorder, depression with no significant surgical history of relevance who presented to the ED with acute headache associated with left-sided chest pain that radiated to her left arm. The patient also reported associated dizziness that has been going on for the last three days. On admission, the patient denied shortness of breath, fever, chills and stated that the pain was not getting any worse or better with any changing of position or palpation. The patient denied any history of cardiac disease and had no any additional symptoms. Upon my examination the patient was emphasizing headache that was worse compared to the pain that she was feeling of the left-sided of the chest. Initial EKG was showing sinus rhythm with no significant ST segment elevation or depression and no T-wave abnormalities. Troponins came back negative and echocardiogram was unremarkable showing an LVEF of 60%. Acute coronary syndrome was ruled out and we performed a CT scan of the sinuses which showed improvement of paranasal sinusitis compared to previous CT on previous visit. The patient was started on Augmentin 875 mg one tab b.i.d. we will continue this treatment for 10 days upon discharge. We encouraged the patient to complete antibiotic therapy as prescribed, we will send acetaminophen and he will prevent q.8 p.r.n. for headache. We encouraged the patient to follow up with her PCP in one week and get referral for neurology and ENT for migraines and chronic sinusitis. Patient agrees and understands the plan. Admitting diagnosis: Acute chest pain and frontal headache. Discharge plan -Augmentin 875 mg one tab b.i.d. for 10 days -ibuprofen 600 mg q.8 p.r.n. for five days, for headache -acetaminophen 650 mg q.8 p.r.n. for five days, for headache -follow-up with her PCP in one week -follow-up with neurology and ENT for headache and chronic sinusitis as outpatient. Consults/Reason for consult N/A Operations or Procedures CHEST RADIOGRAPH Indication: eval for chest pain Technique: Single frontal view of the chest was obtained Comparison: None FINDINGS: Lines and Tubes: None Lungs: No focal consolidation. Pleura: No effusion. No pneumothorax. Cardiomediastinal contours: Unremarkable Bones: No acute osseous abnormality. IMPRESSION: No acute cardiopulmonary disease. EXAM: CT SINUS WITHOUT CONTRAST HISTORY: Sinusitis COMPARISON: CT HEAD WITHOUT CONTRAST on DOS: 1/3/25 TECHNIQUE: Axial images were obtained and reformatted in coronal and sagittal planes. All CT scans at this medical facility are performed using dose modulation techniques as appropriate to a performed exam including the following: Automated exposure control was utilized; adjustment of the MA and/or KV according to patient size; and use of iterative reconstruction technique. CT Dose: CTDI volume is 66.5 mGy. Dose-length product is 838.76 mGy*cm FINDINGS: PARANASAL SINUSES: Trace fluid mixed with air noted in the dependent part of the left sphenoid sinus. Mild left maxillary sinus mucosal thickening OSTIOMEATAL COMPLEXES: Unremarkable. Specifically, the infundibulum are patent. NASAL CAVITY: The osseous nasal septum is midline. The nasal turbinates are unremarkable. MASTOIDS: Moderate mastoid effusion. TEMPOROMANDIBULAR JOINTS: Unremarkable. ORBITS: Unremarkable. ORAL CAVITY: Grossly unremarkable. TONSILS AND ADENOIDS: Unremarkable. BONES/SOFT TISSUES: Unremarkable. OTHER: None. IMPRESSION: 1. Significant interval improvement of paranasal sinus disease minimal disease noted in the left sphenoid and maxillary sinuses. 2. Stable left mastoid effusion. Condition at Discharge: Good Final Diagnosis/Problems List Acute on chronic sinusitis Acute uncomplicated cystitis/UTI Acute chest pain likely non cardiac, due to anxiety Acute coronary syndrome ruled out Dyslipidemia Anxiety Depression Discharge Disposition: Home Discharge Instruct/Medications Diet: Regular Activity: No Restrictions, As Tolerated Follow Up/Referral: F/U in 1 week with her PCP F/U with neurology as outpatient for migraines Medications: Augmentin 875mg 1tab BID for 10 days Ibuprophen 600mg Q8 PRN for 5 days Acetaminophen 650mg Q8 PRN for 5 days Discharge Statement: "Patient was advised to return to the ER or call 911 if any headaches, dizziness, shortness of breath, chest pain, abdominal pain, bleeding, fevers, or worsening of medical condition. Patient was counseled about treatment plan, medications, possible side effects, patientverbalized understanding. All questions were answered to the best of my ability. This discharge took greater then 30 minutes in planning, reviewing documentation, counseling the patient, and discussing with other team members." ASSESSMENT ASSESSMENT Assessment Acute on chronic sinusitis Acute uncomplicated cystitis/UTI Acute chest pain likely non cardiac, due to anxiety Acute coronary syndrome ruled out Dyslipidemia Anxiety Depression Date of Service: Oct 17, 2024 Billing Provider: KATHERINE HUMPHREYS MD Common Visit Codes: [id number] DISCH DAY >30min SHORTY MARQUEZ RESIDENT Oct 17, 2024 15:31 KATHERINE HUMPHREYS MD Oct 21, 2024 09:46
[2024-10-17 16:43] VITALS: BP 101/68; PULSE 95; RESP 19; TEMP 98.5; O2SAT 95
[2024-10-17] MEDS ORDERED: AMOXICILLIN/CLAVUL 875 MG TAB PO SCH (22:00)
== END 2024-10-17 17:20 | disposition home or self-care (01) | DRG 463 ==
LOC: ER 08:12 → TELE 13:40 → TELE-WESTW 18:52
PROVIDERS: ADMIT Nurse Practitioner Family; ATTEND Nurse Practitioner Family
DX: N30.00 Acute cystitis without hematuria (principal); E78.5 Hyperlipidemia, unspecified; J01.90 Acute sinusitis, unspecified; F41.9 Anxiety disorder, unspecified; F32.A Depression, unspecified
CPT/HCPCS: 36415; 70486; 71045; 80048; 80053; 80061; 81001; 83036; 83880; 84443; 84484; 85025; 87086; 93005; 93306; 99291; G0378; J2405; J3490; J7060

== ENCOUNTER 2024-11-03 16:51 | Emergency (ER) | payer MEDICAID ==
[~2024-11-03] VITALS: Ht 154.9 cm; Wt 81.0 kg
[~2024-11-03 16:51] MED LIST changes: -ACET500T58 PO; +ACET650T12 PO; +AUG875T PO; +IBUP-1455 PO; +IBUP1TAB5 PO; -NITR-87 PO
[2024-11-03 18:28] LABS: Urine Bacteria None Seen /hpf (None Seen)
[2024-11-03 18:45] LABS: Urine Blood Negative /uL (Negative); Urine Budding Yeast MODERATE /hpf (None Seen); Urine Clarity Turbid (Clear); Urine Color Light-Orange (Yellow); Urine Mucus FEW (None Seen); Urine Protein, UAD TRACE (Negative); Urine Squamous Epithelial Cell FEW /hpf (<5); Urine Urobilinogen 2 mg/dL (Negative); Urine WBC < 1 /HPF (0-5)
[2024-11-03] MEDS ORDERED: LEVO500T91 PO (19:02)
--- NOTE | 2024-11-03 19:02 | ED.PDOC ---
History of Present Illness HPI Comments Patient states she has been having headache for the last two weeks. He was recently seen and admitted in the emergency department at this hospital. States she was discharged with migraines and sinus infection. She took her full course of Augmentin states no significant improvement. Patient is still reports pain in her sinuses. Leaning forward makes the pain worse. Still has been having nasal congestion. Chief Complaint: Headache Time Seen by MD: 17:08 Reviewed Notes: Nurses Notes Allergies: Coded Allergies: NO KNOWN ALLERGIES (Unverified , 09/26/24) Home Meds Active Scripts Ibuprofen Micronized (Ibuprofen) 600 Mg Tab, 600 MG PO Q8HP PRN for 5 Days, #15 TAB Prov:SHORTY MARQUEZ RESIDENT 10/17/24 Acetaminophen (Acetaminophen Er) 650 Mg Tab, 650 MG PO Q8HP PRN for 5 Days, #15 TAB Prov:SHORTY MARQUEZ RESIDENT 10/17/24 Amoxicillin & Pot Clavulanate (AUGMENTIN TABLET) 875 Mg Tb, 875 MG PO BID for 10 Days, #20 TAB Prov:SHORTY MARQUEZ RESIDENT 10/17/24 Reported Medications Ibuprofen Micronized (Ibuprofen) 800 Mg Tab, 1 TAB PO Q8HPRN PRN for PAIN 10/16/24 Information Source: Patient Mode of Arrival: Ambulatory Severity: Mild Past Medical History PAST MEDICAL HISTORY: Anxiety, Depression Surgical History: Denies all surgeries 3D TECHNOLOGIST History: No Pertinent 3D TECHNOLOGIST History Family History Family History: Reviewed,noncontributory to illness, No family hx of Cancer, No family hx of DM, No family hx of Heart zohreh, No family hx of HTN, No family hx ofKidney zohreh, No family hx of Liver zohreh, No family hx of Lung zohreh, No family hx of Stroke Social History Smoker: Non-Smoker Alcohol: Denies ETOH Use Drugs: Denies Drug Use Lives In: Home Constitutional: denies: chills, diaphoresis, fatigue, fever, malaise, sweats, weakness, others EENTM: denies: blurred vision, double vision, ear bleeding, ear discharge, ear drainage, ear pain, ear ringing, eye pain, eye redness, hearing loss, mouth pain, mouth swelling, nasal discharge, nose bleeding, nose congestion, nose pain, photophobia, tearing, throat pain, throat swelling, voice changes, others Respiratory: denies: cough, hemoptysis, orthopnea, SOB at rest, shortness of breath, SOB with excertion, stridor, wheezing, others Cardiovascular: denies: chest pain, dizzy spells, diaphoresis, Dyspnea on exertion, edema, irregular heart beat, left arm pain, lightheadedness, palpitations, PND, syncope, others Gastrointestinal: denies: abdomen distended, abdominal pain, blood streaked bowels, constipated, diarrhea, dysphagia, difficulty swallowing, hematemesis, melena, nausea, poor appetite, poor fluid intake, rectal bleeding, rectal pain, vomiting, others Genitourinary: denies: abnormal vagina bleeding, burning, dyspareunia, dysuria, flank pain, frequency, hematuria, incontinence, pain, , vagina discharge , urgency, others Neurological: reports: headache; denies: dizziness, fainting, left sided numbness, left sided weakness, numbness, paresthesia, pre-existing deficit, right sided numbness, right sided weakness, seizure, speech problems, tingling, tremors, weakness, others Musculoskeletal: denies: back pain, gout, joint pain, joint swelling, muscle pain, muscle stiffness, neck pain, others Integumetry: denies: bruises, change in color, change in hair/nails, dryness, laceration, lesions, lumps, rash, wounds, others Allergic/Immunocompromised: denies: Difficulty Healing, Frequent Infections, Hives, Itching, others Hematologic/Lymphatic: denies: anemia, blood clots, easy bleeding, easy bruising, swollen glands, others Physical Exam General Appearance: No Apparent Distress, Normal HEENT: Normal ENT Inspection, Pharynx Normal, Sinuses (Frontal and maxillary sinus tenderness.), TMs Normal Neck: Full Range of Motion, Non-Tender, Normal, Normal Inspection Respiratory: Chest Non-Tender, Lungs Clear, No Accessory Muscle Use, No Respiratory Distress, Normal Breath Sounds Cardiovascular: No Edema, No JVD, No Murmur, No Gallop, Normal Peripheral Pulse s, Regular Rate/Rhythm Breast Exam: Deferred Gastrointestinal: No Organomegaly, Non Tender, No Pulsatile Mass, Normal Bowel Sounds, Soft Genitalia: Deferred Pelvic: Deferred Rectal: Deferred Extremities: No calf tenderness, Normal capillary refill, Normal inspection, Normal range of motion, Non-tender, No pedal edema Musculoskeletal : Apperance: Normal Neurologic: Alert, 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 Was a procedure done?: No Differential Dx Considerations may include: Sinus infection, TIA, migraines, tension headache X-Ray, Labs, Meds, VS Vital Signs Date Time Temp Pulse Resp B/P (MAP) Pulse Ox O2 Delivery O2 Flow Rate FiO2 11/03/24 17:02 97.0 84 18 146/101 (116) 98 11/03/24 17:02 Room Air 0 Lab Test 11/03/24 18:28 Range/Units Urine Color Light-orange Yellow Urine Clarity Turbid H Clear Urine pH 7.0 5.0-9.0 Urine Specific [place] 1.020 1.001-1.035 Urine Protein Trace H Negative Urine Ketones 1+ H Negative Urine Blood Negative Negative /uL Urine Nitrite Negative Negative Urine Bilirubin Negative Negative Urine Urobilinogen 2 H Negative mg/dL Urine Leukocyte Esterase Negative Negative /uL Urine RBC <1 0 - 4 /hpf Urine Microscopic WBC < 1 0-5 /HPF Urine Squamous Epithelial Cells Few <5 /hpf Urine Bacteria None seen None Seen /hpf Urine Mucus Few None Seen Urine Yeast (Budding) Moderate None Seen /hpf Urine Glucose Normal Normal mg/dL X-Ray, Labs, Meds, VS Comment Imaging: X-rays and CT scans were reviewed and interpreted by this provider, im aging shows no fractures and no pathological disease. Pending radiology review. Laboratory: Labs reviewed and interpreted by this provider. No significant abnormalities noted. Patient has prior medical visits reviewed. Med reconciliation performed Vital signs reviewed Time of 1ST Reevaluation: 19:02 Reevaluation 1ST: Improved Patient Education/Counseling: Diagnosis, Treatment, Need For Follow Up (Patient advised to follow-up in the emergency room in the next 24 to 48 hours if symptoms do not improve. Advised follow-up with PCP in the next 3 to 5 days. Patient verbalized understanding. ) Family Education/Counseling: Diagnosis, Treatment Departure 1 Departure Time of Disposition: 19:01 Impression: Primary Impression: Sinusitis Qualified Codes: J32.1 - Chronic frontal sinusitis Disposition: HOME / SELF CARE / HOMELESS Condition: Fair e-Prescriptions Levofloxacin Hemihydrate (LEVOFLOXACIN) 500 Mg Tab 1 TAB PO DAILY for 7 Days, #7 TAB Prov: CONCEPCIÓN ADAMS 11/03/24 Discharged With: Self Critical Care Note Critical Care Time?: No Stability Stability form required: No Heart Score Heart Score: Heart Score Response (Comments) Value History N/A 0 EKG N/A 0 Age N/A 0 Risk Factors N/A 0 Troponin N/A 0 Total 0 CONCEPCIÓN ADAMS Nov 03, 2024 19:02
[2024-11-03 19:41] VITALS: BP 145/85; TEMP 98.1
[2024-11-03 19:42] VITALS: PULSE 76; RESP 16; O2SAT 97
== END 2024-11-03 19:47 | disposition home or self-care (01) ==
LOC: ER 16:51
DX: J32.9 Chronic sinusitis, unspecified (principal); F41.9 Anxiety disorder, unspecified; F32.9 Major depressive disorder, single episode, unspecified; R51.9 Headache, unspecified
CPT/HCPCS: 81001

== ENCOUNTER 2024-11-07 17:28 | Emergency (ER) | payer MEDICAID ==
[~2024-11-07] VITALS: Ht 154.9 cm; Wt 65.0 kg
[~2024-11-07 17:28] MED LIST changes: +LEVO500T91 PO
[2024-11-07 17:57] LABS: Basophils # (auto) 0 10 ^3/uL (0-0.2); Basophils % (auto) 0.6 % (0.0-2.0); Eosinophils # (auto) 0.7 10 ^3/uL (0-0.8); Eosinophils % (auto) 9.7 % (0.0-7.0); Hematocrit 35.5 % (36.0-46.0); Hemoglobin 11.7 g/dL (12.2-16.2); Lymphocytes % (auto) 28.6 % (10.0-50.0); Mean Corpuscular Hemoglobin 31.9 pg (28.0-32.0); Mean Corpuscular Hgb Conc. 32.9 g/dL (32.0-36.0); Monocytes # (auto) 0.5 10 ^3/uL (0-1.3); Monocytes % (auto) 7.6 % (0.0-12.0); Neutrophils # (auto) 3.7 10 ^3/uL (1.6-8.6); Neutrophils % (auto) 53.5 % (37.0-80.0); Nucleated Red Blood Cells % 0.1 %; Platelet Count (auto) 131 10^3/uL (140-450); Red Blood Cells 3.66 10^6/uL (4.0-5.20); Red Cell Distribution Width 14.6 % (11.8-14.3); White Blood Cell 6.8 10^3/uL (4.4-10.8)
--- NOTE | 2024-11-07 18:03 | DVH ---
EXAM: XR Chest, 1 View CLINICAL INDICATION: CHEST PAIN TECHNIQUE: Frontal view of the chest. COMPARISON: XY CHEST XRAY 1 VIEW on DOS: 10/16/24 FINDINGS: LUNGS AND PLEURAL SPACES: See below. HEART: Cardiomegaly with mild congestion. MEDIASTINUM: Unremarkable. Normal mediastinal contour. BONES/JOINTS: Unremarkable. No acute fracture. OTHER FINDINGS: . None. . .. IMPRESSION: Cardiomegaly with mild congestion.
[2024-11-07 18:11] LABS: Albumin 3.9 g/dL (3.2-4.8); Alkaline Phosphatase 109 U/L (46-116); Anion Gap 8 (5-15); BUN/Creatinine Ratio 11.9 (10.0-20.0); Bilirubin, Total 0.9 mg/dL (0.2-1.0); Calcium 9.4 mg/dL (8.7-10.4); Carbon Dioxide 23 mmol/L (20-31); Chloride 106 mmol/L (98-107); Sodium 137 mmol/L (136-145); Total Protein 6.8 g/dL (5.7-8.2)
[2024-11-07 18:14] LABS: Alanine Aminotransferase 56 U/L (7-40); Aspartate Aminotransferase 81 U/L (13-40); Blood Urea Nitrogen 7 mg/dL (9-23); Glucose 111 mg/dL (74-106)
[2024-11-07 18:22] LABS: INR 1.23 (0.9-1.15); Partial Thromboplastin Time 28.5 SEC (24.5-34.5); Prothrombin Time 12.8 sec (9.3-11.8)
--- NOTE | 2024-11-07 18:41 | ECG ---
[facility] Test Date: 2024-11-07 Test Time: 17:29:54 Pat Name: CRISTOPHER BECERRA Department: ED Room: Gender: F Solar Site Assessment Specialist: YANELI : 1975 Requested By: BRUNO CHRISTINE Order Number: [id number] Reading MD: Burt Zuniga Measurements Intervals [place] Rate: 68 P: 5 AK: 139 QRS: -20 QRSD: 93 T: 28 QT: 428 QTc: 456 Interpretive Statements Sinus rhythm Borderline left axis deviation Baseline wander in lead(s) II,III,aVF Electronically Signed On 11-10-2024 8:23:30 PST by Burt Zuniga Please click the below link to view image of tracing.
[2024-11-07] MEDS: ASPirin-EC 325mg tab PO ONE (18:53)
[2024-11-07 20:44] VITALS: BP 149/98; TEMP 98.2
[2024-11-07 20:47] VITALS: PULSE 72; RESP 18; O2SAT 97
[2024-11-07 20:51] VITALS: PULSE 68
--- NOTE | 2024-11-07 20:51 | ED.PDOC ---
History of Present Illness HPI Comments 48 y/o F, with a history of anxiety, depression, HLD, UTI's, and sinusitis, is BIBA for c/o chest and left arm and leg pain, today. Patient is a poor historian and endorses on having symptoms for over the past 2 months following initial unprovoked onset. She comments on [facility] hospital admission for last time she was seen for chest pain 2 months ago and not following up with her credit specialist or PCP since then. She denies having any shortness of breath, palpitations, nausea, vomiting, or other associated symptoms or modifiers at this time. Chief Complaint: Chest Pain Time Seen by MD: 17:30 Primary Care Provider: UNKNOWN Reviewed Notes: Nurses Notes, Textile Pin Worker Notes, Medications, Allergies Allergies: Coded Allergies: NO KNOWN ALLERGIES (Unverified , 09/26/24) Home Meds Active Scripts Levofloxacin Hemihydrate (LEVOFLOXACIN) 500 Mg Tab, 1 TAB PO DAILY for 7 Days, #7 TAB Prov:CONCEPCIÓN ADAMS LEASE ADMINISTRATION SUPERVISOR 11/03/24 Ibuprofen Micronized (Ibuprofen) 600 Mg Tab, 600 MG PO Q8HP PRN for 5 Days, #15 TAB Prov:SHORTY MARQUEZ RESIDENT 10/17/24 Acetaminophen (Acetaminophen Er) 650 Mg Tab, 650 MG PO Q8HP PRN for 5 Days, #15 TAB Prov:SHORTY MARQUEZ RESIDENT 10/17/24 Amoxicillin & Pot Clavulanate (AUGMENTIN TABLET) 875 Mg Tb, 875 MG PO BID for 10 Days, #20 TAB Prov:SHORTY MARQUEZ RESIDENT 10/17/24 Reported Medications Ibuprofen Micronized (Ibuprofen) 800 Mg Tab, 1 TAB PO Q8HPRN PRN for PAIN 10/16/24 Information Source: Patient, Emergency Med Personnel Mode of Arrival: EMS Severity: Moderate Timing: Months Duration: Since onset Prehospital treatment: 12 Lead EKG, ASA Past Medical History PAST MEDICAL HISTORY: Anxiety, Depression, High Lipids, UTI'S Past Medical History (Other): sinusitis, chest pain Surgical History: Denies all surgeries REGIONAL BUSINESS MANAGER History: No Pertinent REGIONAL BUSINESS MANAGER History Family History Family History: Reviewed,noncontributory to illness, No family hx of Cancer, No family hx of DM, No family hx of Heart zohreh, No family hx of HTN, No family hx ofKidney zohreh, No family hx of Liver zohreh, No family hx of Lung zohreh, No family hx of Stroke Social History Smoker: Non-Smoker Alcohol: Denies ETOH Use Drugs: Denies Drug Use Lives In: Home Constitutional: denies: chills, diaphoresis, fatigue, fever, malaise, sweats, weakness, others EENTM: denies: blurred vision, double vision, ear bleeding, ear discharge, ear drainage, ear pain, ear ringing, eye pain, eye redness, hearing loss, mouth pain, mouth swelling, nasal discharge, nose bleeding, nose congestion, nose p ain, photophobia, tearing, throat pain, throat swelling, voice changes, others Respiratory: denies: cough, hemoptysis, orthopnea, SOB at rest, shortness of breath, SOB with excertion, stridor, wheezing, others Cardiovascular: reports: chest pain, left arm pain; denies: dizzy spells, diaphoresis, Dyspnea on exertion, edema, irregular heart beat, lightheadedness, palpitations, PND, syncope, others Gastrointestinal: denies: abdomen distended, abdominal pain, blood streaked bowels, constipated, diarrhea, dysphagia, difficulty swallowing, hematemesis, melena, nausea, poor appetite, poor fluid intake, rectal bleeding, rectal pain, vomiting, others Genitourinary: denies: abnormal vagina bleeding, burning, dyspareunia, dysuria, flank pain, frequency, hematuria, incontinence, pain, , vagina discharge, urgency, others Neurological: denies: dizziness, fainting, headache, left sided numbness, left sided weakness, numbness, paresthesia, pre-existing deficit, right sided numbness, right sided weakness, seizure, speech problems, tingling, tremors, weakness, others Musculoskeletal: reports: others (left leg pain ); denies: back pain, gout, joint pain, joint swelling, muscle pain, muscle stiffness, neck pain Integumetry: denies: bruises, change in color, change in hair/nails, dryness, laceration, lesions, lumps, rash, wounds, others Allergic/Immunocompromised: denies: Difficulty Healing, Frequent Infections, Hi ves, Itching, others Hematologic/Lymphatic: denies: anemia, blood clots, easy bleeding, easy bruising, swollen glands, others Endocrine: denies: excessive hunger, excessive sweating, excessive thirst, excessive urination, flushing, intolerance to cold, intolerance to heat, unexplained weight gain, unexplained weight loss, others Psychiatric: denies: anxiety, bipolar disorder, depression, hopeless, panic disorder, schizophrenia, sleepless, suicidal, others All Other Systems: Reviewed and Negative (negative unless otherwise stated above or in HPI) Physical Exam General Appearance: Moderate Distress (Due to chest pain and anxiety concerns), Normal HEENT: Normal ENT Inspection, Pharynx Normal, TMs Normal Neck: Full Range of Motion, Non-Tender, Normal, Normal Inspection Respiratory: Chest Non-Tender, Lungs Clear, No Accessory Muscle Use, No Respiratory Distress, Normal Breath Sounds, Other (Unremarkable chest evaluation. Unable to elicit any pain on palpation. 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 Was a procedure done?: No EKG EKG : Pulse Rate (adult): 68 [place]: Normal Cardiac Rhythm: NSR Block: None Hypertrophy: None ST: Normal Differential Dx Considerations may include: [place], PE, ACS, PNA, viral syndrome, URI, musculoskeletal pain, anxiety, chest pain X-Ray, Labs, Meds, VS Vital Signs Date Time Temp Pulse Resp B/P (MAP) Pulse Ox O2 Delivery O2 Flow Rate FiO2 11/07/24 20:51 68 11/07/24 20:47 72 18 97 Room Air* 0 21 11/07/24 20:44 98.2 72 18 149/98 (115) 97 98.2 11/07/24 18:39 72 20 97 Room Air 11/07/24 18:39 72 20 139/63 (88) 97 11/07/24 17:40 97.6 80 16 120/84 (96) 96 11/07/24 17:29 68 Lab Test 11/07/24 18:34 11/07/24 17:38 Range/Units Troponin I High Sensitivity < 3 L < 3 L </=34 ng/L White Blood Count 6.8 4.4-10.8 10^3/uL Red Blood Count 3.66 L 4.0-5.20 10^6/uL Hemoglobin 11.7 L 12.2-16.2 g/dL Hematocrit 35.5 L 36.0-46.0 % Mean Corpuscular Volume 97.0 80.0-100.0 fL Mean Corpuscular Hemoglobin 31.9 28.0-32.0 pg Mean Corpuscular Hemoglobin Concent 32.9 32.0-36.0 g/dL Red Cell Distribution Width 14.6 H 11.8-14.3 % Platelet Count 131 L 140-450 10^3/uL Mean Platelet Volume 9.8 6.9-10.8 fL Neutrophils (%) (Auto) 53.5 37.0-80.0 % Lymphocytes (%) (Auto) 28.6 10.0-50.0 % Monocytes (%) (Auto) 7.6 0.0-12.0 % Eosinophils (%) (Auto) 9.7 H 0.0-7.0 % Basophils (%) (Auto) 0.6 0.0-2.0 % Neutrophils # (Auto) 3.7 1.6-8.6 10 ^3/uL Lymphocytes # (Auto) 2.0 0.4-5.4 10 ^3/uL Monocytes # (Auto) 0.5 0-1.3 10 ^3/uL Eosinophils # (Auto) 0.7 0-0.8 10 ^3/uL Basophils # (Auto) 0 0-0.2 10 ^3/uL Nucleated Red Blood Cells 0.1 % Prothrombin Time 12.8 H 9.3-11.8 sec Prothrombin Time INR 1.23 H 0.9-1.15 Activated Partial Thromboplast Time 28.5 24.5-34.5 SEC Sodium Level 137 136-145 mmol/L Potassium Level 4.0 3.5-5.1 mmol/L Chloride Level 106 98-107 mmol/L Carbon Dioxide Level 23 20-31 mmol/L Anion Gap 8 5-15 Blood Urea Nitrogen 7 L 9-23 mg/dL Creatinine 0.59 0.550-1.02 mg/dL Glomerular Filtration Rate Calc 112 >90 mL/min BUN/Creatinine Ratio 11.9 10.0-20.0 Serum Glucose 111 H 74-106 mg/dL Calcium Level 9.4 8.7-10.4 mg/dL Total Bilirubin 0.9 0.2-1.0 mg/dL Aspartate Amino Transferase (AST) 81 H 13-40 U/L Alanine Aminotransferase (ALT) 56 H 7-40 U/L Alkaline Phosphatase 109 46-116 U/L Total Protein 6.8 5.7-8.2 g/dL Albumin 3.9 3.2-4.8 g/dL Current Medications Medications (Trade) Dose Ordered Sig/Margaret Route Start Time Stop Time Status Last Admin Aspirin (Ecotrin Enteric Coated Tablet) 325 mg ONCE ONCE PO 11/07/24 18:30 11/07/24 18:31 DC 11/07/24 18:53 Alprazolam (Xanax Tablet) 0.5 mg ONCE ONCE PO 11/07/24 21:00 11/07/24 21:01 DC 11/07/24 20:58 [place] [id number] Ph: [phone] DIAGNOSTIC IMAGING Diagnostic Imaging Report : [id number] Signed PATIENT: CRISTOPHER BECERRA ACCT: [id number] UNIT: [id number] : 1975 LOC: ER ROOM / BED: / AGE / SEX: 48 / F ADM STATUS: REG ER SERVICE [id number] ORDERING PHYSICIAN: BRUNO CHRISTINE MD PROCEDURE(s): CXRP - CHEST PORTABLE REASON: CHEST PAIN ORDER NUMBER(s): [id number], ACCESSION NUMBER(s): [id number] EXAM: XR Chest, 1 View CLINICAL INDICATION: CHEST PAIN TECHNIQUE: Frontal view of the chest. COMPARISON: XY CHEST XRAY 1 VIEW on DOS: 10/16/24 FINDINGS: LUNGS AND PLEURAL SPACES: See below. HEART: Cardiomegaly with mild congestion. MEDIASTINUM: Unremarkable. Normal mediastinal contour. BONES/JOINTS: Unremarkable. No acute fracture. OTHER FINDINGS: . None. . .. IMPRESSION: Cardiomegaly with mild congestion. ATED BY: ANNIE CHERRY MD DICTATED DATE/TIME: 11/07/241800 SIGNED BY: ANNIE CHERRY MD SIGNED DATE/TIME: 11/07/241800 CC: X-Ray, Labs, Meds, VS Comment All studies performed the ED were evaluated by me personally. Laboratories were unremarkable for any acute systemic process. EKG revealed a sinus rhythm with a rate of 68, borderline left axis deviation, baseline wandering in leads two, three and AVF. OR interval 139 and QT interval of 428. Unremarkable EKG. Chest x-ray revealed some cardiomegaly and mild congestion. No consolidation or signs of pneumonia. While waiting for results, patient was given some Xanax as she states that she believes her chest pain may be related to anxiety. Patient had good relief of symptoms status post medication dispensed. Advised patient to follow up with her primary care provider, credit specialist as well as possible psychiatrist to deal with her recent recurrent chest pain concerns. Time of 1ST Reevaluation: 21:09 Reevaluation 1ST: Improved Consultation: PCP, Cardiology, Psychiatry Patient Education/Counseling: Diagnosis, Treatment Family Education/Counseling: Diagnosis, Treatment, No Family Present Departure 1 Departure Time of Disposition: 21:09 Impression: Primary Impression: Chest pain Additional Impression: Anxiety Disposition: 01 HOME / SELF CARE / HOMELESS Condition: Stable Additional Instructions: Advised patient utilize medication as needed and additionally, patient should follow up with the primary care provider for Cardiology and psychiatric referral and evaluation to address her recurrent chest pain concerns and anxiety issues. e-Prescriptions Alprazolam (Xanax) 0.5 Mg Tb 1 TAB PO BIDP PRN, #10 TAB Prov: ANNIE EDMONDSON PAC 11/07/24 Discharged With: Self, Friend Critical Care Note Critical Care Time?: No Stability Stability form required: No Heart Score Heart Score: Heart Score Response (Comments) Value History Slightly Suspicious 0 EKG Normal 0 Age 45-64 1 Risk Factors No known risk factors 0 Troponin Normal limit 0 Total 1 I personally scribed for ANNIE EDMONDSON PAC ([email or web address]) on 11/07/24 at 20:51. Electronically submitted by Daniel Bartholomew ([email or web address]). ANNIE EDMONDSON PAC Nov 07, 2024 20:51
[2024-11-07] MEDS: ALPRAZolam 0.5 MG TAB PO ONE (20:58)
[2024-11-07] MEDS ORDERED: ALPR0.5T PO (21:10)
== END 2024-11-07 21:30 | disposition home or self-care (01) ==
LOC: EDUNIT# 17:28 → ER 17:28 → EDBD 17:28 → ER 21:30
DX: R07.9 Chest pain, unspecified (principal); F41.9 Anxiety disorder, unspecified; F32.A Depression, unspecified; E78.5 Hyperlipidemia, unspecified; Z87.440 Personal history of urinary (tract) infections
CPT/HCPCS: 36415; 71045; 80053; 84484; 85025; 85610; 85730; 93005